=== PATIENT | female | born 1975 | race Caucasian/White ===

== ENCOUNTER 2025-07-27 19:24 | Emergency (ER) | payer BC ==
[2025-07-27 20:27] LABS: BASOPHILS ABSOLUTE AUTO 0.04 10^3/uL (0.00-0.10); BASOPHILS PERCENT AUTO 0.7 % (0.0-1.0); EOSINOPHILS ABSOLUTE AUTO 0.15 10^3/uL (0.10-0.30); EOSINOPHILS PERCENT AUTO 2.6 % (1.0-3.0); IMMATURE GRAN ABSOLUTE AUTO 0.00 10^3/uL (0.00-0.04); IMMATURE GRAN PERCENT AUTO 0.0 % (0.0-0.4); LYMPHOCYTES ABSOLUTE AUTO 1.50 10^3/uL (1.00-4.00); LYMPHOCYTES PERCENT AUTO 25.7 % (20.0-40.0); MEAN PLATELET VOLUME 10.3 fL (7.4-10.4); MONOCYTES ABSOLUTE AUTO 0.61 10^3/uL (0.10-0.80); MONOCYTES PERCENT AUTO 10.4 % (2.0-8.0); NEUTROPHILS ABSOLUTE AUTO 3.54 10^3/uL (2.50-7.00); NEUTROPHILS PERCENT AUTO 60.6 % (50.0-70.0); PLATELET COUNT,PLT 199 10^3/uL (150-400); RED BLOOD CELL COUNT 4.59 10^6/uL (3.80-5.50); RED CELL DISTRIBUTION WIDTH 14.0 % (11.5-14.5); WHITE BLOOD CELL COUNT,WBC 5.84 10^3/uL (5.00-10.00)
[2025-07-27 20:44] LABS: ALANINE AMINOTRANSFERASE,ALT 25.0 U/L (14-63); ASPARTATE AMNIOTRANSFERASE,AST 22.0 U/L (15-37); BILIRUBIN TOTAL 0.5 mg/dL (0.2-1.0); BLOOD UREA NITROGEN,BUN 23.0 mg/dL (7-18); CARBON DIOXIDE,CO2 27.1 mmol/L (21.0-32.0); CHLORIDE,CL 102.0 mmol/L (98-107); CREATININE 1.17 mg/dL (0.51-1.17); EST CRCL DRUG DOSING (CG) 57.38 mL/min; ESTIMATED GFR 57.0 mL/min (>=60); GLUCOSE RANDOM 93.0 mg/dL (70-140); POTASSIUM,K 4.3 mmol/L (3.5-5.1); PROTEIN TOTAL,TP 6.8 g/dL (6.4-8.2); SODIUM,NA 137.0 mmol/L (136-145)
[2025-07-27] MEDS: Iopamidol 755 Mg/ML 100 ML Bottle IV ONE (21:06)
[2025-07-27 23:13] VITALS: BP 140/79; PULSE 59
== END 2025-07-27 23:10 | disposition home or self-care (01) ==
LOC: KA.ED 19:24
DX: K43.9 Ventral hernia without obstruction or gangrene (principal); Z79.899 Other long term (current) drug therapy
CPT/HCPCS: 74177; 80053; 85025; 99284; J7030; Q9967